=== PATIENT | male | born 1965 | race Caucasian/White ===

== ENCOUNTER 2020-10-29 08:12 | Outpatient (CLI) | payer OTHER, SELFPAY ==
--- NOTE | 2020-12-02 16:19 | WPDHOMESLEEP ---
Sleep Study - Home Unattended Date of Study: 10/29/20 Ordering Provider: Aleksandra Suresh PA-C Interpreting Physician: Alina Bates MD Home Sleep Study Type: Apnea Link Air Height: 1.85 m Weight: 130.181 kg Body Mass Index: 37.8 Neck Circumference (inches): 18 [place]: 2 Reason for Sleep Study Poor quality sleep, wakes up during the night; has restless leg syndrome and takes ropinirole Sleep History Scott Fernandes is a 55 year old man with a history of restless leg syndrome, on ropinirole. He has occasional snoring, and occasionally it is loud enough that others complain about it. He does not have heartburn, , belching or coughing at night. He does not awaken from sleep feeling short of breath. He rarely has difficulty sleeping with a cold. He does not wake up gasping for breath at night or have breathing problems at night observed by others. He rarely sweats excessively at night, rarely notices his heart pounding or beating irregularly night. He rarely falls asleep during the day, never on involuntarily or while driving. He does not fall asleep during physical effort. he denies loss of muscle tone with strong emotion. He does not have daytime difficulties due to excessive sleepiness, works as a computer teacher. He does not feel paralyzed on waking or falling asleep. He does not have vivid dreamlike scenes upon awakening or falling asleep. He is not afraid to go to sleep. He does not have nightmares. He rarely remembers his dreams. He rarely has racing thoughts. He rarely has feelings of sadness, depression or anxiety. He rarely has muscular tension and rarely notices parts of his body jerking. He occasionally kicks at night, occasionally has crawling and aching feelings in his legs at night. He occasionally has leg pain at night. He rarely has morning jaw pain. He rarely grinds his teeth during sleep. He rarely is bothered by pain during the day. He has never awakened by pain at night. He rarely wakes up feeling stiff in the morning. He occasionally wakes up with sore or achy muscles and occasionally wakes up with pain in the neck an He has memory problems. Normal bedtime is 11:30 p.m. taking 1/2 hour to fall asleep, typically waking 3-5 times at night. When he awakens he stays awake for 1/2 hour. While awake he does go urinate. He wakes in the morning at 7:30 a.m.. On the weekends he stays awake till midnight and wakes at 8 in the morning. He does not routinely take naps. A short nap is not refreshing. He generally feels refreshed in the morning. Habits: Never smoked tobacco. Caffeine 4 servings daily, each is a 12 oz can. No alcohol or recreational drugs. FOR[facility]LY [facility] Past Medical History Medical History (Updated 12/02/20 @ 19:48 by Alina Bates MD) Depression Hyperlipidemia Hypertension Restless legs Family History Family History Mother Family history of thyroid disease Father Hypertension Malignant neoplasm of prostate Social History Social History Smoking status: Never smoker Second hand tobacco smoke exposure: No Alcohol intake: never Medications Home Medications Medication Instructions Recorded Confirmed Type fenofibrate micronized 43 mg 43 mg PO DAILY #90 cap 06/16/20 Rx capsule potassium chloride 10 mEq See Rx Instructions PO .COMPLEX 06/17/20 Rx capsule,extended release #36 cap metoprolol succinate 25 mg 25 mg PO DAILY #90 tablet 06/19/20 Rx tablet,extended release 24 hr ropinirole 0.25 mg tablet 0.25 mg PO .HS #90 tablet 06/19/20 Rx bupropion HCl 150 mg 24 hr tablet, 150 mg PO QAM #90 tablet 08/03/20 Rx extended release hydrochlorothiazide 25 mg tablet 25 mg PO DAILY #90 tablet 11/15/20 Rx lisinopril 20 mg tablet 20 mg PO DAILY #90 tablet 11/15/20 Rx Sleep Procedure This test was performed using 4 channel monitoring including respir
[2020-12-02 19:47] VITALS: BMI 37.8
== END 2020-10-29 08:13 | disposition home or self-care (01) ==
LOC: ANHCSM 08:13
PROVIDERS: PCP Family Medicine; Visit Provider Physician Assistant
DX: G47.33 Obstructive sleep apnea (adult) (pediatric) (principal); G25.81 Restless legs syndrome
CPT/HCPCS: 95806

== ENCOUNTER 2024-05-17 14:04 | Outpatient (CLI) | payer BC, SELFPAY ==
--- NOTE | ~2024-05-17 | XR_ITS ---
XR knee LT min 4V DATE: 05/17/2024 14:27 INDICATION: Left knee pain, patellar pain. TECHNIQUE: [place] and standing AP, PA and lateral views COMPARISON: None FINDINGS: Patellar enthesopathy at the quadriceps and patellar tendon insertion sites. Mild patellar periarticular spurring. No fracture or dislocation or joint effusion is evident. Joint spaces appear well preserved. No fract ure or dislocation, periosteal reaction or bone destruction. No radiopaque intra-articular loose body or chondrocalcinosis. IMPRESSION: Patellar enthesopathy at quadriceps and patellar tendon insertion sites Mild patellofemoral osteoarthritis. Reviewed, dictated and finalized at location A. IMPRESSION: Patellar enthesopathy at quadriceps and patellar tendon insertion s ites Mild patellofemoral osteoarthritis.
== END 2024-05-17 14:05 | disposition home or self-care (01) ==
PROVIDERS: PCP Family Medicine; Visit Provider Family Medicine
DX: M17.12 Unilateral primary osteoarthritis, left knee (principal)
CPT/HCPCS: 73564

== ENCOUNTER 2024-06-02 14:37 | Emergency (ER) | payer BC, SELFPAY ==
--- NOTE | 2024-06-02 14:41 | ED.EYEPROB ---
HPI - Eye Problem General Chief complaint: Eye Problems Stated complaint: red eyes Time Seen by Provider: 06/02/24 14:50 Source: patient Mode of arrival: ambulatory Limitations: no limitations History of Present Illness HPI Narrative: Scott is a 4-year-old male patient presenting to the clinic today with complaints of eye redness and draining for the past 2 days. The left eye is worse than the right eye. Has been draining yellow discharge. States the eyes are very itchy. Denies any known injury or foreign body in the eye. He denies wearing contacts but does wear glasses. No fever or chills. No URI symptoms Related Data Home Medications Medication Instructions Recorded Confirmed diphenhydramine HCl 25 mg capsule 25 mg PO TID PRN Itching 12/28/20 06/02/24 (Benadryl) miconazole nitrate 2 % topical 1 applic topical DAILY 12/28/20 06/02/24 cream Allergies Allergy/AdvReac Type Severity Reaction Status Date / Time amoxicillin [From Augmentin] Allergy Mild rash Verified 06/02/24 14:49 clavulanic acid Allergy Mild rash Verified 06/02/24 14:49 [From Augmentin] Penicillins Allergy Unknown Unknown Verified 06/02/24 14:49 Review of Systems Review of Systems: Pertinent positives per HPI. Patient denies any fever, chills, rash, headache, visual changes, dizziness, cough, runny nose, sore throat, shortness of breath, chest pain, palpitations, nausea, vomiting, diarrhea, constipation, abdominal pain, or any urinary issues. PMFSH Past Medical History Medical History Depression Hyperlipidemia Hypertension Obesity (BMI 30-39.9) Prediabetes Restless legs Surgical History Surgical History H/O oral surgery Family History Family History Mother Family history of thyroid disease Father Hypertension Malignant neoplasm of prostate Social History Social History Smoking status: Never smoker Second hand tobacco smoke exposure: No Alcohol intake: never Substance use: never Substance use type: does not use Lack of Transportation: No Lack of Food: Never True Current Housing: I Have Housing Concerned About Future Housing: No Difficulty Paying Gas/Electric Bills: No Difficulty Paying for Meds: No Currently Unemployed: No Education: Bachelor's Degree Difficulty w/ Childcare or Family Care: No Living arrangements: with family Occupation/Education: occupation Gender identity (if verbalized by the patient): Male Sexual Orientation (if Verbalized by the Patient): Straight or Heterosexual Spiritual care concerns: No Agree to blood products: Yes Comments At the time of my signature, I reviewed and agree with the nursing past medical, surgical, social, and family history. There is no relevant family history pertinent to the patient complaint. Exam Narrative: General: Well-developed, well nourished, in no apparent distress Head: Normocephalic, atraumatic Eyes: Pupils equally round and reactive to light bilaterally, EOM intact, sclera and conjunctive injected with green mucopurulent discharge, right lids normal, mild redness and swelling noted to the left lower lid Ears: TMs intact and clear, ear canals clear, no drainage, grossly hearing normal. Nose: Nares patent, no discharge, no inflammation, no sinus tenderness. Mouth: Oropharynx without lesions or masses, good dentition, MMM. Neck: Supple, trachea midline, no enlargement of anterior or posterior cervical nodes, no thyroid masses or goiter palpable. Cardio: Regular rate and rhythm, s1 and s2 normal, no murmur appreciated. Resp: Clear to auscultation bilaterally anteriorly and posteriorly, no rhonchi, rales, wheezing or rubs Course Course Emergency Course: Portions of this judi
[2024-06-02 14:47] VITALS: BP 150/73; PULSE 61; RESP 18; TEMP 36.1; O2SAT 100
== END 2024-06-02 15:08 | disposition home or self-care (01) ==
PROVIDERS: Emergency Provider Nurse Practitioner Family; PCP Family Medicine
DX: H10.9 Unspecified conjunctivitis (principal); E78.5 Hyperlipidemia, unspecified; I10 Essential (primary) hypertension; R73.03 Prediabetes; G25.81 Restless legs syndrome; E66.9 Obesity, unspecified; Z68.38 Body mass index [BMI] 38.0-38.9, adult
CPT/HCPCS: 99213; G0463

== ENCOUNTER 2024-12-26 01:01 | Day surgery (SDC) | payer BC, SELFPAY ==
[2024-12-09 14:56] VITALS: BMI 38.7
--- OUTSIDE RECORDS SUMMARY | 2024-12-26 01:04 | XMS_ITS | Patient Health Summary ---
Author Organization [facility] Address [address] [place] [address] Care Team Providers Care Larry Operator Name Role Phone Sanjana Holm MD Primary Care Provider [phone] Note from [facility],non-owned Affiliates and Associated Physician Practices is amultiple site organization consisting of ambulatory clinics and hospital sitesin [place], [place], [place] and [place]. This disclosure is being madepursuant to the Care Everywhere program and may not contain all information available regarding this patient. Last updated 18.[facility] Allergies No known active allergies Medications * Be aware that medications may not be up to date on this document. Alwaysverify current medications with the patient. * phenyleph-shark charlene oil-mo-pet (Preparation H) 0.25-3-14-71.9 % ointment (Started 10/31/2024) Insert into the rectum as needed for Hemorrhoids Social History Tobacco Use Types Packs/Day Years Used Date Smoking Tobacco: Never Smokeless Tobacco: Never Tobacco Cessation:Counseling Given: Not Answered Alcohol Use Standard Drinks/Week Comments Never 0 (1 standard drink = 0.6 oz pur e alcohol) Sex and Gender Information Value Date Recorded Sex Assigned at Not on file Gender Identity Not on file Sexual Orientation Not on file Last Filed Vital Signs Vital Sign Reading Time Taken Comments Blood Pressure 162/86 10/31/2024 2:45 PM SALES PROCESS MANAGER Pulse 56 10/31/2024 2:45 PM SALES PROCESS MANAGER Temperature 36.7 ??C (98.1 ??F) 10/31/2024 10:[address] Respiratory Rate 14 10/31/2024 2:45 PM SALES PROCESS MANAGER Oxygen Saturation 96% 10/31/2024 2:45 PM SALES PROCESS MANAGER Inhaled Oxygen Concentration - - Weight 127 kg (280 lb) 10/31/2024 10:43 AM SALES PROCESS MANAGER Height 185.4 cm (6' 1 ) 10/31/2024 10:43 AM SALES PROCESS MANAGER Body Mass Index 36.94 10/31/2024 10:43 AM SALES PROCESS MANAGER Procedures * BLOOD TYPE VERIFICATION(Performed 10/31/2024) * CBC W AUTO DIFFERENTIAL(Performed 10/31/2024) * B-TYPE NATRIURETIC PEPTIDE(Performed 10/31/2024) * TROPONIN-I HIGH SENSITIVE BASELINE + 1HR(Performed 10/31/2024) * CT HEAD WO CONTRAST(Performed 10/31/2024) Performed for Syncope and collapse, Rectal bleeding * CT ANGIO ABDOMEN PELVIS(Performed 10/31/2024) Performed for Syncope and collapse, Rectal bleeding * TYPE + SCREEN PANEL(Performed 10/31/2024) * PT-INR [facility](Performed 10/31/2024) * EKG 12-LEAD(Performed 10/31/2024) Performed for Syncope and collapse * PHOSPHORUS BLOOD(Performed 10/31/2024) * MAGNESIUM BLOOD(Performed 10/31/2024) * COMPREHENSIVE METABOLIC PANEL(Performed 10/31/2024) * CBC W AUTO DIFFERENTIAL(Performed 10/31/2024) Results * TROPONIN-I HIGH SENSITIVE BASELINE + 1HR (10/31/2024 3:43 PM SALES PROCESS MANAGER) [facility] Troponin I High Sensitive 5 <=35 ng/L 10/31/2024 4:27 PM SALES PROCESS MANAGER [facility] Blood BLOOD SPECIMEN / Unknown Venipuncture / Unknown 10/31/2024 3:43 PM SALES PROCESS MANAGER 10/31/2024 3:56 PM SALES PROCESS MANAGER David Lamb MD LAB - CHEMISTRY OR DERABLES [address] [address], [facility] [phone] * BLOOD TYPE VERIFICATION (10/31/2024 3:43 PM SALES PROCESS MANAGER) Pathologist [facility] ABO Rh A POS 10/31/2024 4:5 9 PM SALES PROCESS MANAGER [facility] Blood Bank BLOOD SPECIMEN / Unknown Venipuncture / Unknown 10/31/2024 3:43 PM SALES PROCESS MANAGER 10/31/2024 3:53 PM SALES PROCESS MANAGER Sanjana Weber INSIDE SOLAR SALES CONSULTANT-TWISTING MACHINE OPERATOR LAB - BLOOD BANK ORDERABLES [facility] [address] [place] [address], [facility] [phone] * CBC W AUTO DIFFERENTIAL (10/31/2024 3:43 PM SALES PROCESS MANAGER) Only the most recent of2 resultswithin the time period is included. WBC 8.2 4.0 - 10.7 x10E9/L 10/31/2024 4:06 PM [facility] RBC Count 4.65 4.30 - 5.80 x10E12/L 10/31/2024 4:06 PM [facility] Hemoglobin 14.1 13.3 - 17.5 g/dL 10/31/2024 4:06 PM [facility] Hematocrit 39.6 38.7 - 51.1 % 10/31/2024 4:06 PM [facility] MCV 85.2 80.0 - 98.0 fL 10/31/2024 4:06 PM [facility] MCH 30.3 26.7 - 33.6 pg 10/31/2024 4:06 PM [facility] MCHC 35.6 31.7 - 36.3 g/dL 10/31/2024 4:06 PM [facility] RDW-CV 13.1 11.3 - 14.8 % 10/31/2024 4:06 PM [facility] Platelet Count 271 150 - 420 x10E9/L 10/31/2024 4:06 PM [facility] MPV 10.1 7.8 - 11.4 fL 10/31/2024 4:06 PM [facility] Neutrophil % 69.7 41.0 - 74.0 % 10/31/2024 4:06 PM [facility] Lymphocyte % 22.6 17.0 - 47.0 % 10/31/2024 4:06 PM [facility] Monocyte % 6.2 3.0 - 11.0 % 10/31/2024 4:06 PM [facility] Eosinophil % 0.5 0.0 - 7.0 % 10/31/2024 4:06 PM [facility] Basophil % 0.6 0.0 - 1.6 % 10/31/2024 4:06 PM [facility] Immature Granulocytes % 0.4 0.0 - 1.0 % 10/31/2024 4:06 PM [facility] Neutrophil Absolute 5.70 1.60 - 7.50 x10E9/L 10/31/2024 4:06 PM [facility] Lymphocyte Absolute 1.85 1.00 - 4.40 x10E9/L 10/31/2024 4:06 PM [facility] Monocyte Absolute 0.51 0.15 - 1.00 x10E9/L 10/31/2024 4:06 PM [facility] Eosinophil Absolute 0.04 0.00 - 0.60 x10E9/L 10/31/2024 4:06 PM [facility] Basophil Absolute 0.05 0.00 - 0.13 x10E9/L 10/31/2024 4:06 PM [facility] Blood BLOOD SPECIMEN / Unknown Venipuncture / Unknown 10/31/2024 3:43 PM SALES PROCESS MANAGER 10/31/2024 3:56 PM SALES PROCESS MANAGER David Lamb MD LAB - HEMATOLOGY O RDERABLES [facility] [address] [place] [address], [facility] [phone] * B-TYPE NATRIURETIC PEPTIDE (10/31/2024 3:43 PM SALES PROCESS MANAGER) BNP 28 <100 pg/mL 10/31/2024 4:33 PM [facility] Comment: A decision threshold of 100 pg/mL has been demonstrated to provide the maximal combination of sensitivity, specificity and predictive value for the diagnosis of congestive heart failure (CHF). ??Virtually all patients with no evidence of CHF have BNP values less than 100 pg/mL. A BNP value greater than 100 pg/mL is consistent with the diagnosis of CHF in the appropriate clinical setting. In a study of 693 patients (male and female) with diagnosed CHF, the following values were determined based on the NYHA functional classification system: NYHA Functional Class ?Mean Valule (pg/mL) ? % >100 pg/mL ?I ?320 ? 58.1 ?II ? 432 ? 73.0 ?III ?656 ? 79.0 ?IV ?1635 ? 98.3 ? Blood BLOOD SPECIMEN / Unknown Venipuncture / Unknown 10/31/2024 3:43 PM SALES PROCESS MANAGER 10/31/2024 3:56 PM SALES PROCESS MANAGER David Lamb MD LAB - CHEMISTRY OR DERABLES Performing Organization Address [facility]/State/[facility] Co de Phone Number [facility] [address] [place] [address], [place] [phone] * CT Angio Abdomen Pelvis (10/31/2024 2:15 PM SALES PROCESS MANAGER) Anatomical Region Laterality Modality Abdomen, Pelvis Computed Tomogra phy 10/31/2024 2:24 PM SALES PROCESS MANAGER Impressions 10/31/2024 4:46 PM SALES PROCESS MANAGER Impression: 1.No acute process identified in the abdomen or pelvis. No acute contrast extravasation is seen. 2.Cholelithiasis without acute cholecystitis. 3.There are tiny stones in the urinary bladder. > Dictated by Alfred Cook MD, (president & ceo [employer]). I, Emiliano Castanon MD have personally reviewed and interpreted this examination/study. > Interpreting Provider: Emiliano Castanon MD on 10/31/2024 4:46 PM Narrative 10/31/2024 4:46 PM SALES PROCESS MANAGER PROCEDURE: ??CT ANGIO ABDOMEN PELVIS, DATE/TIME OF EXAM: ??10/31/2024 2:15 PM, LOCATION ??[facility] INDICATION: R55: Syncope and collapse K62.5: Rectal bleeding ADDITIONAL CLINICAL INFORMATION: Ordering Provider Reason For Exam: ??GI hemorrhage, syncope Technologist Note: Additional: COMPARISON: None. TECHNIQUE: CT of the abdomen and pelvis was performed following the uneventful administration of 100 mL of Isovue 370 intravenous contrast according to GI protocol. Findings: Lower Chest: Normal. Liver: There is a 1.4 cm cyst in hepatic segment 4A. Gallbladder and Bile Ducts: A gallstone is seen. No wall thickening or pericholecystic fluid. Spleen: Normal. Pancreas: Normal. Adrenals: There is a right adrenal adenoma. The left adrenal gland is normal. Kidneys: Multiple hypoattenuating lesions measuring up to 1.7 cm in both kidneys likely represent simple and hemorrhagic cysts. Cortical defect in the left kidney likely due to parenchymal scarring from prior injury. Gastrointestinal: The stomach and visualized loops of large and small bowel are unremarkable. The appendix is not seen; however, no inflammatory changes are seen in the right lower quadrant. Linear hyperdensity in the small bowel likely represents ingested material such as a pill (series 11 image 38). Mesentery/Peritoneum/Retroperitoneum: Normal. Bladder: There are tiny stones in the bladder. Reproductive Organs: The prostate is partially calcified. Vasculature: No vascular abnormality is present. Bones: Bone windows demonstrate no suspicious lytic or blastic lesions. The visible osseous structures are intact. Soft tissues: Normal. Procedure Note Emiliano Castanon MD - 10/31/2024 PROCEDURE: CT ANGIO ABDOMEN PELVIS, DATE/TIME OF EXAM: 10/31/2024 2:15PM, LOCATION [facility] INDICATION: R55: Syncope and collapse K62.5: Rectal bleeding ADDITIONAL CLINICAL INFORMATION: Ordering Provider Reason For Exam: GI hemorrhage, syncope Technologist Note: Additional: COMPARISON: None. TECHNIQUE: CT of the abdomen and pelvis was performed following the uneventful administration of 100 mL of Isovue 370 intravenous contrast according to GI protocol. Findings: Lower Chest: Normal. Liver: There is a 1.4 cm cyst in hepatic segment 4A. Gallbladder and Bile Ducts: A gallstone is seen. No wall thickening or pericholecystic fluid. Spleen: Normal. Pancreas: Normal. Adrenals: There is a right adrenal adenoma. The left adrenal gland is normal. Kidneys: Multiple hypoattenuating lesions measuring up to 1.7 cm in both kidneys likely represent simple and hemorrhagic cysts. Cortical defect in the left kidney likely due to parenchymal scarringfrom prior injury. Gastrointestinal: The stomach and visualized loops of large and small bowel areunremarkable. The appendix is not seen; however, no inflammatory changes are seen inthe right lower quadrant. Linear hyperdensity in the small bowel likely represents ingested material such as a pill (series 11 image 38). Mesentery/Peritoneum/Retroperitoneum: Normal. Bladder: There are tiny stones in the bladder. Reproductive Organs: The prostate is partially calcified. Vasculature: No vascular abnormality is present. Bones: Bone windows demonstrate no suspicious lytic or blastic lesions. The visible osseous structures are intact. Soft tissues: Normal. Impression: 1.No acute process identified in the abdomen or pelvis. No acutecontrast extravasation is seen. 2.Cholelithiasis without acute cholecystitis. 3.There are tiny stones in the urinary bladder. > Dictated by Alfred Cook MD, (president & ceo [employer]). I, Emiliano Castanon MD have personally reviewed and interpreted this examination/study. > Interpreting Provider: Emiliano Castanon MD on 10/31/2024 4:46 PM [address] Lamb MD CT ORDERABLES * CT HEAD WO CONTRAST (10/31/2024 2:15 PM SALES PROCESS MANAGER) Anatomical Region Laterality Modality Head Computed Tomogra phy 10/31/2024 2:11 PM SALES PROCESS MANAGER Impressions 10/31/2024 2:39 PM SALES PROCESS MANAGER IMPRESSION: 1. No acute intracranial hemorrhage, stroke, mass effect. Report was dictated by Roosevelt Lee MD (vice president pharmacy). ICruzito MD have personally reviewed and interpreted this examination/study. > Interpreting Provider: Cruzito Kiran MD on 10/31/2024 2:39 PM Narrative 10/31/2024 2:39 PM SALES PROCESS MANAGER PROCEDURE: ??CT HEAD WO CONTRAST, DATE/TIME OF EXAM: ??10/31/2024 2:15 PM, LOCATION ??[facility] INDICATION: R55: Syncope and collapse K62.5: Rectal bleeding ADDITIONAL CLINICAL INFORMATION: Ordering Provider Reason For Exam: ??syncope Technologist Note: ??None Additional: ??None TECHNIQUE: CT of the head was performed without contrast according to standard protocol. CONTRAST: None COMPARISON: No prior study is available for comparison at the time of this dictation. FINDINGS: No acute intracranial hemorrhage or intra- or extra-axial fluid collections are identified. The ventricles are of normal size, shape, and morphology. The basal cisterns are patent. No mass effect or midline shift is seen. The saez-white matter differentiation is normal. Periventricular white matter hypoattenuation is a nonspecific finding that may be indicative of chronic small vessel ischemic disease. There is atherosclerotic calcification of the carotid siphons. Atherosclerotic calcification of the left V4 vertebral artery. The visualized portions of the orbits, paranasal sinuses, and mastoids appear normal. No acute calvarial fracture is identified. There is extra cranial metallic density most likely representing prior injury. Procedure Note Cruzito Kiran MD - 10/31/2024 PROCEDURE: CT HEAD WO CONTRAST, DATE/TIME OF EXAM: 10/31/2024 2:15 PM, LOCATION [facility] INDICATION: R55: Syncope and collapse K62.5: Rectal bleeding ADDITIONAL CLINICAL INFORMATION: Ordering Provider Reason For Exam: syncope Technologist Note: None Additional: None TECHNIQUE: CT of the head was performed without contrast according to standard protocol. CONTRAST: None COMPARISON: No prior study is available for comparison at the time ofthis dictation. FINDINGS: No acute intracranial hemorrhage or intra- or extra-axial fluidcollections are identified. The ventricles are of normal size, shape, andmorphology. The basal cisterns are patent. No mass effect or midline shift is seen.The saez-white matter differentiation is normal. Periventricular whitematter hypoattenuation is a nonspecific finding that may be indicative ofchronic small vessel ischemic disease. There is atherosclerotic calcification of the carotid siphons. Atherosclerotic calcification of the left [id number] artery. The visualized portions of the orbits, paranasal sinuses, and mastoids appear normal. No acute calvarial fracture is identified. There is extra cranialmetallic density most likely representing prior injury. IMPRESSION: 1. No acute intracranial hemorrhage, stroke, mass effect. Report was dictated by Roosevelt Lee MD (vice president pharmacy). I, Cruzito Kiran MD have personally reviewed and interpreted this examination/study. > Interpreting Provider: Cruzito Kiran MD on 10/31/2024 2:39 PM [address] Lamb MD [address] ORDERABLES * PT-INR [facility] (10/31/2024 11:43 AM SALES PROCESS MANAGER) Pathologist [facility] PT 13.5 12.1 - 14.8 Seconds 10/31/2024 12:26 PM [facility] INR 1.1 See Comment 10/31/2024 12:26 PM [facility] Comment:The suggested therap eutic range for standard coumadin (warfarin) therapy is an INR of 2.0-3.0. For high-risk patients (Mechanical Mitral Valve Prosthesis, etc.), the suggested prophylactic therapeutic range is an INR of 2.5-3.5. Blood BLOOD SPECIMEN / Unknown Venipuncture / Unknown 10/31/2024 11:43 AM SALES PROCESS MANAGER 10/31/2024 11:51 AM SALES PROCESS MANAGER David Lamb MD LAB - COAGULATION ORDERABLES [facility] [address] [place] [address], [facility] [phone] * TYPE + SCREEN PANEL (10/31/2024 11:43 AM SALES PROCESS MANAGER) Antibody Screen NEG 12:35 PM [facility] ABO Rh A POS 10/31/2024 12:35 PM SALES PROCESS MANAGER [facility] Blood Bank BLOOD SPECIMEN / Unknown Venipuncture / Unknown 10/31/2024 11:43 AM SALES PROCESS MANAGER 10/31/2024 11:53 AM SALES PROCESS MANAGER Sanjana Weber INSIDE SOLAR SALES CONSULTANT-TWISTING MACHINE OPERATOR LAB - BLOOD BANK ORDERABLES Performing Organization Address City/[facility]/ZIP Co de Phone Number [facility] [address] [place] [address], [facility] [phone] * EKG 12-LEAD (10/31/2024 11:36 AM SALES PROCESS MANAGER) Ventricular Rate 49 BPM [facility] Atrial Rate 49 BPM [facility] P-R Interval 148 ms [facility] QRS Duration ms 96 ms [facility] Q-T Interval ms 500 ms [facility] QTC Calculation (Bezet) 451 ms [facility] Calculated P [place] 33 degrees [facility] Calculated R [place] 43 degrees [facility] Calculated T [place] 31 degrees [facility] Interpretation EKG SINUS BRADYCARDIA OTHERWISE NORMAL ECG NO PREVIOUS ECGS AVAILABLE Confirmed by KRUNAL HWANG DO ([id number]) on 11/06/2024 3:54:33 PM [facility] 10/31/2024 11:3 6 AM SALES PROCESS MANAGER 11/06/2024 3:54 PM SALES PROCESS MANAGER David Lamb MD ECG ORDERABLES Performing Organization Address City/[facility] Co de Phone Number [facility] * (ABNORMAL) COMPREHENSIVE METABOLIC PANEL (10/31/2024 11:21 AM SALES PROCESS MANAGER) BUN 18 7 - 26 mg/dL 10/31/2024 12:09 PM [facility] Creatinine 1.32(H) 0.71 - 1.16 mg/dL 10/31/2024 12:09 PM [facility] Sodium 141 136 - 145 mmol/L 10/31/2024 12:09 PM [facility] Potassium 3.9 3.5 - 4.5 mmol/L 10/31/2024 12:09 PM [facility] Chloride 105 98 - 107 mmol/L 10/31/2024 12:09 PM [facility] CO2 27 22 - 29 mmol/L 10/31/2024 12:09 PM [facility] Glucose 122(H) 70 - 99 mg/dL 10/31/2024 12:09 PM [facility] Calcium 10.1 8.4 - 10.2 mg/dL 10/31/2024 12:09 PM [facility] Protein Total 7.4 6.0 - 8.3 g/dL 10/31/2024 12:09 PM [facility] Albumin 4.5 3.4 - 5.0 g/dL 10/31/2024 12:09 PM [facility] Bilirubin Total 0.9 0.2 - 1.2 mg/dL 10/31/2024 12:09 PM [facility] Alkaline Phosphatase 60 40 - 150 U/L 10/31/2024 12:09 PM [facility] ALT 25 5 - 55 U/L 10/31/2024 12:09 PM [facility] AST 21 5 - 34 U/L 10/31/2024 12:09 PM [facility] Anion Gap 9 6 - 16 10/31/2024 12:09 PM [facility] BUN/Creatinine Ratio 14 7 - 23 10/31/2024 12:09 PM [facility] Osmolality Calculated 295 275 - 295 mOsm/kg 10/31/2024 12:09 PM [facility] Albumin/Globulin Ratio 1.6 1.1 - 2.3 10/31/2024 12:09 PM [facility] eGFR by CKD-EPI 61(L) >=90 mL/min/1.7 3 m2 10/31/2024 12:09 PM [facility] Blood BLOOD SPECIMEN / Unknown Venipuncture / Unknown 10/31/2024 11:21 AM SALES PROCESS MANAGER 10/31/2024 11:33 AM [facility] Donna Chase PA-C LAB - PLATE PRINTER RY ORDERABLES [facility] [address] [place] [address], [facility] [phone] * (ABNORMAL) PHOSPHORUS BLOOD (10/31/2024 11:21 AM SALES PROCESS MANAGER) Phosphorus 2.6(L) 2.8 - 5.1 mg/dL 10/31/2024 12:09 PM SALES PROCESS MANAGER [facility] Blood BLOOD SPECIMEN / Unknown Venipuncture / Unknown 10/31/2024 11:21 AM SALES PROCESS MANAGER 10/31/2024 11:33 AM SALES PROCESS MANAGER David Lamb MD LAB - CHEMISTRY OR DERABLES [facility] [address] [place] [address], [place] [phone] * MAGNESIUM BLOOD (10/31/2024 11:21 AM SALES PROCESS MANAGER) Magnesium 2.1 1.6 - 2.6 mg/dL 10/31/2024 12:09 PM SALES PROCESS MANAGER [facility] Blood BLOOD SPECIMEN / Unknown Venipuncture / Unknown 10/31/2024 11:21 AM SALES PROCESS MANAGER 10/31/2024 11:33 AM SALES PROCESS MANAGER David Lamb MD LAB - CHEMISTRY OR DERABLES [address] [address], [place] [phone] Care Teams Larry Operator Relationship Specialty Start Date End Date Sanjana Holm MD [address] [place] [address] PCP - General Family Medicine 10/31/24
--- OUTSIDE RECORDS SUMMARY | 2024-12-26 01:04 | XMS_ITS | Clinical Summary ---
Author Organization [facility] Address [address] [place] [address] Care Team Providers Care Operations Architect Name Role Phone Sanjana Holm MD Primary Care Provider [phone] Source Comments [facility],non-owned Affiliates and Associated Physician Practices is amultiple site organization consisting of ambulatory clinics and hospital sitesin [place], [place], [place] and [place]. This disclosure is being madepursuant to the Care Everywhere program and may not contain all information available regarding this patient. Last updated 18.[facility] Allergies No known active allergies Medications * Be aware that medications may not be up to date on this document. Alwaysverify current medications with the patient. Medication Sig Dispensed Refills Start Date End Date Status phenyleph-shark charlene oil-mo-pet (Preparation H) 0.25-3-14-71.9 % ointment Insert into the rectum as needed for Hemorrhoids 28.4 g 10/31/2024 Active Encounters Date Type Department Care Team Description 10/31/2024 11:28 AM CHEMICAL ENGINEERING TECHNOLOGIST - 10/31/2024 4:56 PM [facility] Emergency [facility] [address] [place] [address] David Lamb MD External hemorrhoids (Primary Dx); Syncope and collapse; Rectal bleeding Discharge Disposition: Home or Self Care 10/31/2024 Travel from Last 3 Months Social History Tobacco Use Types Packs/Day Years [...] Comments Blood Pressure 162/86 10/31/2024 2:45 PM CHEMICAL ENGINEERING TECHNOLOGIST Pulse 56 10/31/2024 2:45 PM CHEMICAL ENGINEERING TECHNOLOGIST Temperature 36.7 ??C (98.1 ??F) 10/31/2024 10:[address] Respiratory Rate 14 10/31/2024 2:45 PM CHEMICAL ENGINEERING TECHNOLOGIST Oxygen Saturation 96% 10/31/2024 2:45 PM CHEMICAL ENGINEERING TECHNOLOGIST Inhaled Oxygen Concentration - - Weight 127 kg (280 lb) 10/31/2024 10:43 AM CHEMICAL ENGINEERING TECHNOLOGIST Height 185.4 cm (6' 1 ) 10/31/2024 10:43 AM CHEMICAL ENGINEERING TECHNOLOGIST Body Mass Index 36.94 10/31/2024 10:43 AM CHEMICAL ENGINEERING TECHNOLOGIST Plan of Treatment Health Maintenance Due Date Last Done Comments COLOGUARD (AGES 45-75) - COL ON CA SCREENING 1963 COLON MONITORING 1963 COLONOSCOPY - COLON CA SCREENING 1963 CT COLONOGRAPHY - COLON CA SCREENING 1963 Colorectal Cancer Screening 1963 FIT - COLON CA SCREENING 1963 FLEX SIG - COLON CA SCREENING 1963 LIPID TESTING 1963 HIV SCREENING 1978 HEPATITIS C SCREENING 06/15/1981 DTAP/TDAP/TD VACCINES (1 - Tdap) 1982 PNEUMOCOCCAL VACCINE 50+ (1 of 1 - PCV) 2013 ZOSTER VACCINE (1 of 2) 2013 COVID-19 VACCINE ( - 2023-2 5 season) 2024 INFLUENZA VACCINE (#1) 2024 DEPRESSION SCREENING 11/27/2024 Respiratory Syncytial Virus (RSV) Vaccine Pt: or over 60 yrs (1 - 1-dose 75+ series) 2038 HEPATITIS B VACCINE Aged Out No longe r eligible based on patient's age to complete this topic HIB VACCINE Aged Out No longer eligi ble based on patient's age to complete this topic HPV VACCINE Aged Out No longer eligi ble based on patient's age to complete this topic MENINGOCOCCAL (Group B) VACCINE Aged Out No longer eligible based on patient's age to complete this topic MENINGOCOCCAL VACCINE Aged Out No yumiko zeke eligible based on patient's age to complete this topic PNEUMOCOCCAL VACCINE Aged Out No long er eligible based on patient's age to complete this topic Procedures Procedure Name Priority Date/Time Associated Diagnosis Comments BLOOD TYPE VERIFICATION STAT 10/31/2024 3:43 PM CHEMICAL ENGINEERING TECHNOLOGIST CBC W AUTO DIFFERENTIAL STAT 10/31/2024 3:43 PM CHEMICAL ENGINEERING TECHNOLOGIST B-TYPE NATRIURETIC PEPTIDE STAT 10/31/2024 3:43 PM CHEMICAL ENGINEERING TECHNOLOGIST TROPONIN-I HIGH SENSITIVE BASELINE + 1HR STAT 10/31/2024 3:[address]ING [address] HEAD WO CONTRAST STAT 10/31/2024 2 :15 PM CHEMICAL ENGINEERING TECHNOLOGIST Syncope and collapse Rectal bleeding CT ANGIO ABDOMEN PELVIS STAT 10/31/2024 2:15 PM CHEMICAL ENGINEERING TECHNOLOGIST Syncope and collapse Rectal bleeding TYPE + SCREEN PANEL STAT 10/31/2024 1 1:43 AM CHEMICAL ENGINEERING TECHNOLOGIST PT-INR [facility] STAT 10/31/2024 11:43 AM CHEMICAL ENGINEERING TECHNOLOGIST EKG 12-LEAD Routine 10/31/2024 11:36 AM CHEMICAL ENGINEERING TECHNOLOGIST Syncope and collapse PHOSPHORUS BLOOD STAT 10/31/2024 11:2 1 AM CHEMICAL ENGINEERING TECHNOLOGIST MAGNESIUM BLOOD STAT 10/31/2024 11:21 AM CHEMICAL ENGINEERING TECHNOLOGIST COMPREHENSIVE METABOLIC PANEL STAT 10/31/2024 11:21 AM CHEMICAL ENGINEERING TECHNOLOGIST CBC W AUTO DIFFERENTIAL STAT 10/31/2024 11:21 AM CHEMICAL ENGINEERING TECHNOLOGIST from Last 3 Months Results * TROPONIN-I HIGH SENSITIVE BASELINE + 1HR (10/31/2024 3:43 PM CHEMICAL ENGINEERING TECHNOLOGIST) Troponin I High Sensitive 5 <=35 ng/L 10/31/2024 4:27 PM CHEMICAL ENGINEERING TECHNOLOGIST [facility] Blood BLOOD SPECIMEN / Unknown Venipuncture / Unknown 10/31/2024 3:43 PM CHEMICAL ENGINEERING TECHNOLOGIST 10/31/2024 3:56 PM CHEMICAL ENGINEERING TECHNOLOGIST David Lamb MD LAB - CHEMISTRY OR DERABLES [facility] [address] [place] [address], [facility] [phone] * BLOOD TYPE VERIFICATION (10/31/2024 3:43 PM CHEMICAL ENGINEERING TECHNOLOGIST) Pathologist [facility] ABO Rh A POS 10/31/2024 4:5 9 PM [facility] Blood Bank BLOOD SPECIMEN / Unknown Venipuncture / Unknown 10/31/2024 3:43 PM CHEMICAL ENGINEERING TECHNOLOGIST 10/31/2024 3:53 PM CHEMICAL ENGINEERING TECHNOLOGIST Sanjana Weber APRN-POLYSOMNOGRAPHY TECHNOLOGIST LAB - BLOOD BANK ORDERABLES Performing Organization Address [facility]/ZIP Co de Phone Number [facility] [address] [place] [phone], [facility] [phone] * CBC W AUTO DIFFERENTIAL (10/31/2024 3:43 PM CHEMICAL ENGINEERING TECHNOLOGIST) Only the most recent of2 resultswithin the time period is included. Pathologist [facility] WBC 8.2 4.0 - 10.7 x10E9/L 10/31/2024 4:06 PM [facility] RBC Count 4.65 4.30 - 5.80 x10E12/L 10/31/2024 4:06 PM [facility] Hemoglobin 14.1 13.3 - 17.5 g/dL 10/31/2024 4:06 PM [facility] Hematocrit 39.6 38.7 - 51.1 % 10/31/2024 4:06 PM [facility] MCV 85.2 80.0 - 98.0 fL 10/31/2024 4:06 PM [facility] MCH 30.3 26.7 - 33.6 pg 10/31/2024 4:06 PM [facility] MCHC 35.6 31.7 - 36.3 g/dL 10/31/2024 4:06 PM [facility] RDW-CV 13.1 11.3 - 14.8 % 10/31/2024 4:06 PM [facility] Platelet Count 271 150 - 420 x10E9/L 10/31/2024 4:06 PM [facility] MPV 10.1 7.8 - 11.4 fL 10/31/2024 4:06 PM [facility] Neutrophil % 69.7 41.0 - 74.0 % 10/31/2024 4:06 PM [facility] Lymphocyte % 22.6 17.0 - 47.0 % 10/31/2024 4:06 PM [facility] Monocyte % 6.2 3.0 - 11.0 % 10/31/2024 4:06 PM [facility] Eosinophil % 0.5 0.0 - 7.0 % 10/31/2024 4:06 PM [facility] Basophil % 0.6 0.0 - 1.6 % 10/31/2024 4:06 PM [facility] Immature Granulocytes % 0.4 0.0 - 1.0 % 10/31/2024 4:06 PM [facility] Neutrophil Absolute 5.70 1.60 - 7.50 x10E9/L 10/31/2024 4:06 PM [facility] Lymphocyte Absolute 1.85 1.00 - 4.40 x10E9/L 10/31/2024 4:06 PM [facility] Monocyte Absolute 0.51 0.15 - 1.00 x10E9/L 10/31/2024 4:06 PM [facility] Eosinophil Absolute 0.04 0.00 - 0.60 x10E9/L 10/31/2024 4:06 PM [facility] Basophil Absolute 0.05 0.00 - 0.13 x10E9/L 10/31/2024 4:06 PM [facility] Blood BLOOD SPECIMEN / Unknown Venipuncture / Unknown 10/31/2024 3:43 PM CHEMICAL ENGINEERING TECHNOLOGIST 10/31/2024 3:56 PM [facility] David Lamb MD LAB - HEMATOLOGY O RDERABLES [facility] [address] [place] [address], [facility] [phone] * B-TYPE NATRIURETIC PEPTIDE (10/31/2024 3:43 PM CHEMICAL ENGINEERING TECHNOLOGIST) [facility] BNP 28 <100 pg/mL 10/31/2024 4:33 PM CHEMICAL ENGINEERING TECHNOLOGIST [facility] Comment: A decision threshold of 100 [...] Unknown Venipuncture / Unknown 10/31/2024 3:43 PM CHEMICAL ENGINEERING TECHNOLOGIST 10/31/2024 3:56 PM CHEMICAL ENGINEERING TECHNOLOGIST David Lamb MD LAB - CHEMISTRY OR DERABLES [facility] [address] [place] [address], [facility] [phone] * CT Angio Abdomen Pelvis (10/31/2024 2:15 PM CHEMICAL ENGINEERING TECHNOLOGIST) Anatomical Region Laterality Modality Abdomen, Pelvis Computed Tomogra phy 10/31/2024 2:24 PM CHEMICAL ENGINEERING TECHNOLOGIST Impressions 10/31/2024 4:46 PM CHEMICAL ENGINEERING TECHNOLOGIST Impression: 1.No acute process identified in the abdomen or pelvis. No acute contrast extravasation is seen. 2.Cholelithiasis without acute cholecystitis. 3.There are tiny stones in the urinary bladder. > Dictated by Alfred Cook MD, (resident assistant). I, Emiliano Castanon MD have personally reviewed and interpreted this examination/study. > Interpreting Provider: Emiliano Castanon MD on 10/31/2024 4:46 PM Narrative 10/31/2024 4:46 PM CHEMICAL ENGINEERING TECHNOLOGIST PROCEDURE: ??CT ANGIO ABDOMEN PELVIS, DATE/TIME OF EXAM: ??10/31/2024 2:15 PM, LOCATION ??[facility] INDICATION: R55: Syncope and collapse K62.5: Rectal [...] PELVIS, DATE/TIME OF EXAM: 10/31/2024 2:15PM, LOCATION [facility] INDICATION: R55: Syncope and collapse K62.5: Rectal [...] bladder. > Dictated by Alfred Cook MD, (resident assistant). Emiliano Draper MD have personally reviewed and interpreted this examination/study. > Interpreting Provider: Emiliano Castanon MD on 10/31/2024 4:46 PM David Lamb MD CT ORDERABLES * CT HEAD WO CONTRAST (10/31/2024 2:15 PM CHEMICAL ENGINEERING TECHNOLOGIST) Anatomical Region Laterality Modality Head Computed Tomogra phy 10/31/2024 2:11 PM CHEMICAL ENGINEERING TECHNOLOGIST Impressions 10/31/2024 2:39 PM CHEMICAL ENGINEERING TECHNOLOGIST IMPRESSION: 1. No acute intracranial hemorrhage, stroke, mass effect. Report was dictated by Roosevelt Lee MD (residential door unit installer). Cruzito Draper MD have personally reviewed and interpreted this examination/study. > Interpreting Provider: Cruzito Kiran MD on 10/31/2024 2:39 PM Narrative 10/31/2024 2:39 PM CHEMICAL ENGINEERING TECHNOLOGIST PROCEDURE: ??CT HEAD WO CONTRAST, DATE/TIME OF EXAM: ??10/31/2024 2:15 PM, LOCATION ??[facility] INDICATION: R55: Syncope and collapse K62.5: Rectal [...] DATE/TIME OF EXAM: 10/31/2024 2:15 PM, LOCATION [facility] INDICATION: R55: Syncope and collapse K62.5: Rectal [...] carotid siphons. Atherosclerotic calcification of the left [id number] artery. The visualized portions of the orbits, paranasal sinuses, and mastoids appear normal. No acute calvarial fracture is identified. There is extra cranialmetallic density most likely representing prior injury. IMPRESSION: 1. No acute intracranial hemorrhage, stroke, mass effect. Report was dictated by Roosevelt Lee MD (residential door unit installer). I, Cruzito Kiran MD have personally reviewed and interpreted this examination/study. > Interpreting Provider: Cruzito Kiran MD on 10/31/2024 2:39 PM David Lamb MD CT ORDERABLES * PT-INR [facility] (10/31/2024 11:43 AM CHEMICAL ENGINEERING TECHNOLOGIST) PT 13.5 12.1 - 14.8 Seconds 10/31/2024 12:26 PM [facility] INR 1.1 See Comment 10/31/2024 12:26 PM [facility] Comment:The suggested therap eutic range for standard coumadin (warfarin) therapy is an INR of 2.0-3.0. For high-risk patients (Mechanical Mitral Valve Prosthesis, etc.), the suggested prophylactic therapeutic range is an INR of 2.5-3.5. Blood BLOOD SPECIMEN / Unknown Venipuncture / Unknown 10/31/2024 11:43 AM CHEMICAL ENGINEERING TECHNOLOGIST 10/31/2024 11:51 AM CHEMICAL ENGINEERING TECHNOLOGIST David Lamb MD LAB - COAGULATION ORDERABLES Performing Organization Address [facility]/ZIP Co de Phone Number [facility] [address] [place] [address], [facility] [phone] * TYPE + SCREEN PANEL (10/31/2024 11:43 AM CHEMICAL ENGINEERING TECHNOLOGIST) Antibody Screen NEG 12:35 PM CHEMICAL ENGINEERING TECHNOLOGIST [facility] ABO Rh A POS 10/31/2024 12:35 PM CHEMICAL ENGINEERING TECHNOLOGIST [facility] Blood Bank BLOOD SPECIMEN / Unknown Venipuncture / Unknown 10/31/2024 11:43 AM CHEMICAL ENGINEERING TECHNOLOGIST 10/31/2024 11:53 AM CHEMICAL ENGINEERING TECHNOLOGIST Sanjana Weber AERONAUTICAL PROJECT ENGINEER-POLYSOMNOGRAPHY TECHNOLOGIST LAB - BLOOD BANK ORDERABLES Performing Organization Address [facility] de Phone Number [facility] [address] [place] [address], [facility] [phone] * EKG 12-LEAD (10/31/2024 11:36 AM CHEMICAL ENGINEERING TECHNOLOGIST) Ventricular Rate 49 BPM SL MUSE Atrial Rate 49 BPM [facility] MUSE P-R Interval 148 ms [facility] M[facility] QRS Duration ms 96 ms [facility] MUSE Q-T Interval ms 500 ms [facility] MUSE QTC Calculation (Bezet) 451 ms [facility] MUSE Calculated P [place] 33 degrees [facility] MUSE Calculated R [place] 43 degrees [facility] MUSE Calculated T [place] 31 degrees [facility] MUSE Interpretation EKG SINUS BRADYCARDIA OTHERWISE NORMAL ECG NO PREVIOUS ECGS AVAILABLE Confirmed by KRUNAL HWANG DO ([id number]) on 11/06/2024 3:54:33 PM [facility] MUSE 10/31/2024 11:3 6 AM CHEMICAL ENGINEERING TECHNOLOGIST 11/06/2024 3:54 PM CHEMICAL ENGINEERING TECHNOLOGIST David Lamb MD ECG ORDERABLES Performing Organization Address [facility] Co de Phone Number [facility] MUSE * (ABNORMAL) COMPREHENSIVE METABOLIC PANEL (10/31/2024 11:21 AM CHEMICAL ENGINEERING TECHNOLOGIST) BUN 18 7 - 26 mg/dL 10/31/2024 12:09 PM [facility] Creatinine 1.32(H) 0.71 - 1.16 mg/dL 10/31/2024 12:09 PM [facility] Sodium 141 136 - 145 mmol/L 10/31/2024 12:09 PM [facility] Potassium 3.9 3.5 - 4.5 mmol/L 10/31/2024 12:09 PM [facility] Chloride 105 98 - 107 mmol/L 10/31/2024 12:09 PM [facility] CO2 27 22 - 29 mmol/L 10/31/2024 12:09 PM [facility] Glucose 122(H) 70 - 99 mg/dL 10/31/2024 12:09 PM [facility] Calcium 10.1 8.4 - 10.2 mg/dL 10/31/2024 12:09 PM [facility] Protein Total 7.4 6.0 - 8.3 g/dL 10/31/2024 12:09 PM [facility] Albumin 4.5 3.4 - 5.0 g/dL 10/31/2024 12:09 PM [facility] Bilirubin Total 0.9 0.2 - 1.2 mg/dL 10/31/2024 12:09 PM [facility] Alkaline Phosphatase 60 40 - 150 U/L 10/31/2024 12:09 PM [facility] ALT 25 5 - 55 U/L 10/31/2024 12:09 PM [facility] AST 21 5 - 34 U/L 10/31/2024 12:09 PM [facility] Anion Gap 9 6 - 16 10/31/2024 12:09 PM [facility] BUN/Creatinine Ratio 14 7 - 23 10/31/2024 12:09 PM [facility] Osmolality Calculated 295 275 - 295 mOsm/kg 10/31/2024 12:09 PM [facility] Albumin/Globulin Ratio 1.6 1.1 - 2.3 10/31/2024 12:09 PM [facility] eGFR by CKD-EPI 61(L) >=90 mL/min/1.7 3 m2 10/31/2024 12:09 PM CHEMICAL ENGINEERING TECHNOLOGIST [facility] Blood BLOOD SPECIMEN / Unknown Venipuncture / Unknown 10/31/2024 11:21 AM CHEMICAL ENGINEERING TECHNOLOGIST 10/31/2024 11:33 AM CHEMICAL ENGINEERING TECHNOLOGIST Donna De La Cruz PA-C LAB - MEMBERSHIP SALES ADVISOR RY ORDERABLES [address] [address], [place] [phone] * (ABNORMAL) PHOSPHORUS BLOOD (10/31/2024 11:21 AM CHEMICAL ENGINEERING TECHNOLOGIST) Phosphorus 2.6(L) 2.8 - 5.1 mg/dL 10/31/2024 12:09 PM CHEMICAL ENGINEERING TECHNOLOGIST [facility] Blood BLOOD SPECIMEN / Unknown Venipuncture / Unknown 10/31/2024 11:21 AM CHEMICAL ENGINEERING TECHNOLOGIST 10/31/2024 11:33 AM CHEMICAL ENGINEERING TECHNOLOGIST David Lamb MD LAB - CHEMISTRY OR DERABLES Performing Organization Address City/[facility]/ZIP Co de Phone Number [address] [address], [place] [phone] * MAGNESIUM BLOOD (10/31/2024 11:21 AM CHEMICAL ENGINEERING TECHNOLOGIST) Magnesium 2.1 1.6 - 2.6 mg/dL 10/31/2024 12:09 PM CHEMICAL ENGINEERING TECHNOLOGIST [facility] Blood BLOOD SPECIMEN / Unknown Venipuncture / Unknown 10/31/2024 11:21 AM CHEMICAL ENGINEERING TECHNOLOGIST 10/31/2024 11:33 AM CHEMICAL ENGINEERING TECHNOLOGIST David Lamb MD LAB - CHEMISTRY OR DERABLES [address] [address], [place] [phone] from Last 3 Months Care Teams Operations Architect Relationship Specialty Start Date End Date Sanjana Holm MD [address] [place] [address] PCP - General Family Medicine 10/31/24
--- OUTSIDE RECORDS SUMMARY | 2024-12-26 01:04 | XMS_ITS | Continuity of Care Document ---
Author Organization [facility] Address [address] [facility] utive [facility] [address] [place] [address] Phone Care Team Providers Care Paint Trimmer Pipe Bowls Name Role Phone Riggins OD, Caludio Unavailable Unavailable Advance Directives Directive Yes / No Effective Date File Name No Information Encounters Encounter Description Practice Location Reason(s) For Visit Diagnoses Date Provider Providers Copied on Encounter [facility], [address], [place], [place], [id number], [place] tel:[phone] [facility] No Information Dorian-0 [phone] Riggins OD Claudio. [address] , [address], [place], [address], [place]. tel:[phone] Family History Family Member Type Diagnosis Age At Onset No Information Payers Payer name Insurance type Covered republican ID Authoriza tion(s) No Information Social History Type Description Quantity Date Captured Comments Sex Male Smoking Status No Information Chief Complaint And Reason For Visit No Information Reason For Referral Reason For Referral No Information History Of Present Illness Encounter Date Complaint History Of Prese nt Illness No Information Functional Status Date Functional Assessmen t No Information Instructions Date Instruction Additional Infor mation No Information Assessments Type Assessment Date No Information Patient Care Teams Name Effective Dates (start - stop) Status Members No Information
--- OUTSIDE RECORDS SUMMARY | 2024-12-26 01:04 | XMS_ITS | Referral Summary ---
Author Organization [facility] Address [address] [place] [address] Care Team Providers Care Supervisor [employer] Name Role Phone Sanjana Holm MD Primary Care Provider [phone] Source Comments [facility],non-[facility] Affiliates and Associated Physician Practices is amultiple site organization consisting of ambulatory clinics and hospital sitesin [place], [place], [place] and [place]. This disclosure is being madepursuant to the Care Everywhere program and may not contain all information available regarding this patient. Last updated 18.[facility] Encounters Date Type Department Care Team Description 10/31/2024 Travel 10/31/2024 11:28 AM [facility] - 10/31/2024 4:56 PM [facility] Emergency [facility] EMERGENCY DEPARTMENT [address] [place] [address] David Lamb MD External hemorrhoids (Primary Dx); Syncope and collapse; Rectal bleeding Discharge Disposition: Home or Self Care from Last 3 Months Allergies No known active allergies Medications * Be aware that medications may not be up to date on this document. Alwaysverify current medications with the patient. Medication Sig Dispensed Refills Start Date End Date Status phenyleph-shark charlene oil-mo-pet (Preparation H) 0.25-3-14-71.9 % ointment Insert into the rectum as needed for Hemorrhoids 28.4 g 10/31/2024 Active Social History Tobacco Use Types Packs/Day Years [...] Comments Blood Pressure 162/86 10/31/2024 2:45 PM COMPUTER MECHANIC Pulse 56 10/31/2024 2:45 PM COMPUTER MECHANIC Temperature 36.7 ??C (98.1 ??F) 10/31/2024 10:[address] Respiratory Rate 14 10/31/2024 2:45 PM COMPUTER MECHANIC Oxygen Saturation 96% 10/31/2024 2:45 PM COMPUTER MECHANIC Inhaled Oxygen Concentration - - Weight 127 kg (280 lb) 10/31/2024 10:43 AM COMPUTER MECHANIC Height 185.4 cm (6' 1 ) 10/31/2024 10:43 AM COMPUTER MECHANIC Body Mass Index 36.94 10/31/2024 10:43 AM COMPUTER MECHANIC Plan of Treatment Not on file Procedures Procedure Name Priority Date/Time Associated Diagnosis Comments BLOOD TYPE VERIFICATION STAT 10/31/2024 3:43 PM COMPUTER MECHANIC CBC W AUTO DIFFERENTIAL STAT 10/31/2024 3:43 PM COMPUTER MECHANIC B-TYPE NATRIURETIC PEPTIDE STAT 10/31/2024 3:43 PM COMPUTER MECHANIC TROPONIN-I HIGH SENSITIVE BASELINE + 1HR STAT 10/31/2024 3:[address] HEAD WO CONTRAST STAT 10/31/2024 2 :15 PM COMPUTER MECHANIC Syncope and collapse Rectal bleeding CT ANGIO ABDOMEN PELVIS STAT 10/31/2024 2:15 PM COMPUTER MECHANIC Syncope and collapse Rectal bleeding TYPE + SCREEN PANEL STAT 10/31/2024 1 1:43 AM COMPUTER MECHANIC PT-INR [facility] STAT 10/31/2024 11:43 AM COMPUTER MECHANIC EKG 12-LEAD Routine 10/31/2024 11:36 AM COMPUTER MECHANIC Syncope and collapse PHOSPHORUS BLOOD STAT 10/31/2024 11:2 1 AM COMPUTER MECHANIC MAGNESIUM BLOOD STAT 10/31/2024 11:21 AM COMPUTER MECHANIC COMPREHENSIVE METABOLIC PANEL STAT 10/31/2024 11:21 AM COMPUTER MECHANIC CBC W AUTO DIFFERENTIAL STAT 10/31/2024 11:21 AM COMPUTER MECHANIC from Last 3 Months Results * TROPONIN-I HIGH SENSITIVE BASELINE + 1HR (10/31/2024 3:43 PM COMPUTER MECHANIC) [facility] Troponin I High Sensitive 5 <=35 ng/L 10/31/2024 4:27 PM COMPUTER MECHANIC [facility] Blood BLOOD SPECIMEN / Unknown Venipuncture / Unknown 10/31/2024 3:43 PM COMPUTER MECHANIC 10/31/2024 3:56 PM COMPUTER MECHANIC David Lamb MD LAB - CHEMISTRY OR DERABLES [facility] [address] [place] [address], [facility] [phone] * BLOOD TYPE VERIFICATION (10/31/2024 3:43 PM COMPUTER MECHANIC) [facility] ABO Rh A POS 10/31/2024 4:5 9 PM COMPUTER MECHANIC [facility] BLOOD BANK LAB Blood Bank BLOOD SPECIMEN / Unknown Venipuncture / Unknown 10/31/2024 3:43 PM COMPUTER MECHANIC 10/31/2024 3:53 PM COMPUTER MECHANIC Sanjana Weber APRN-POWDER [facility] LAB - BLOOD BANK ORDERABLES [facility] BLOOD BANK LAB [address] [place] [address], [place] [phone] * CBC W AUTO DIFFERENTIAL (10/31/2024 3:43 PM COMPUTER MECHANIC) Only the most recent of2 resultswithin the time period is included. [facility] WBC 8.2 4.0 - 10.7 x10E9/L 10/31/2024 4:06 PM COMPUTER MECHANIC [facility] RBC Count 4.65 4.30 - 5.80 [...] Unknown Venipuncture / Unknown 10/31/2024 3:43 PM COMPUTER MECHANIC 10/31/2024 3:56 PM [facility] David Lamb MD LAB - HEMATOLOGY O RDERABLES [facility] [address] [place] [address], [facility] [phone] * B-TYPE NATRIURETIC PEPTIDE (10/31/2024 3:43 PM [facility]) BNP 28 <100 pg/mL 10/31/2024 4:33 PM [...] Unknown Venipuncture / Unknown 10/31/2024 3:43 PM COMPUTER MECHANIC 10/31/2024 3:56 PM COMPUTER MECHANIC David Lamb MD LAB - CHEMISTRY OR DERABLES Performing Organization Address [facility] de Phone Number [address] [address], [facility] [phone] * CT Angio Abdomen Pelvis (10/31/2024 2:15 PM COMPUTER MECHANIC) Anatomical Region Laterality Modality Abdomen, Pelvis Computed Tomogra phy 10/31/2024 2:24 PM COMPUTER MECHANIC Impressions 10/31/2024 4:46 PM COMPUTER MECHANIC Impression: 1.No acute process identified in the abdomen or pelvis. No acute contrast extravasation is seen. 2.Cholelithiasis without acute cholecystitis. 3.There are tiny stones in the urinary bladder. > Dictated by Alfred Cook MD, (vice president sales). I, Emiliano Castanon MD have personally reviewed and interpreted this examination/study. > Interpreting Provider: Emiliano Castanon MD on 10/31/2024 4:46 PM Narrative 10/31/2024 4:46 PM COMPUTER MECHANIC PROCEDURE: ??CT ANGIO ABDOMEN PELVIS, DATE/TIME OF [...] bladder. > Dictated by Alfred Cook MD, (vice president sales). Emiliano Draper MD have personally reviewed and interpreted this examination/study. > Interpreting Provider: Emiliano Castanon MD on 10/31/2024 4:46 PM [address] Lamb MD [address] ORDERABLES * CT HEAD WO CONTRAST (10/31/2024 2:15 PM COMPUTER MECHANIC) Anatomical Region Laterality Modality Head Computed Tomogra phy 10/31/2024 2:11 PM COMPUTER MECHANIC Impressions 10/31/2024 2:39 PM COMPUTER MECHANIC IMPRESSION: 1. No acute intracranial hemorrhage, stroke, mass effect. Report was dictated by Roosevelt Lee MD (vice president tax). Cruzito Draper MD have personally reviewed and interpreted this examination/study. > Interpreting Provider: Cruzito Kiran MD on 10/31/2024 2:39 PM Narrative 10/31/2024 2:39 PM COMPUTER MECHANIC PROCEDURE: ??CT HEAD WO CONTRAST, DATE/TIME OF [...] carotid siphons. Atherosclerotic calcification of the left [id number] artery. The visualized portions of the orbits, paranasal sinuses, and mastoids appear normal. No acute calvarial fracture is identified. There is extra cranialmetallic density most likely representing prior injury. IMPRESSION: 1. No acute intracranial hemorrhage, stroke, mass effect. Report was dictated by Roosevelt Lee MD (vice president tax). ICruzito MD have personally reviewed and interpreted this examination/study. > Interpreting Provider: Cruzito Kiran MD on 10/31/2024 2:39 PM [address] Lamb MD [address] ORDERABLES * PT-INR [facility] (10/31/2024 11:43 AM COMPUTER MECHANIC) [facility] PT 13.5 12.1 - 14.8 Seconds 10/31/2024 12:26 PM [facility] INR 1.1 See Comment 10/31/2024 12:26 PM [facility] Comment:The suggested therap eutic range for standard coumadin (warfarin) therapy is an INR of 2.0-3.0. For high-risk patients (Mechanical Mitral Valve Prosthesis, etc.), the suggested prophylactic therapeutic range is an INR of 2.5-3.5. Blood BLOOD SPECIMEN / Unknown Venipuncture / Unknown 10/31/2024 11:43 AM COMPUTER MECHANIC 10/31/2024 11:51 AM COMPUTER MECHANIC David Lamb MD LAB - COAGULATION ORDERABLES Performing Organization Address City/[facility]/ZIP Co de Phone Number [facility] [address] [address], [facility] [phone] * TYPE + SCREEN PANEL (10/31/2024 11:43 AM COMPUTER MECHANIC) [facility] Antibody Screen NEG 12:35 PM [facility] ABO Rh A POS 10/31/2024 12:35 PM [facility] B[facility]OD [facility] LAB Blood Bank BLOOD SPECIMEN / Unknown Venipuncture / Unknown 10/31/2024 11:43 AM COMPUTER MECHANIC 10/31/2024 11:53 AM COMPUTER MECHANIC Sanjana Weber BINGO MANAGER-P[employer] [facility] LAB - BLOOD BANK ORDERABLES [facility] BLOOD BANK LAB [address] [place] [address], [place] [phone] * EKG 12-LEAD (10/31/2024 11:36 AM COMPUTER MECHANIC) [facility] Ventricular Rate 49 BPM [facility] MUSE Atrial Rate 49 BPM [facility] MUSE P-R Interval 148 ms [facility] MUSE QRS Duration ms 96 ms [facility] MUSE Q-T Interval ms 500 ms [facility] MUSE QTC Calculation (Bezet) 451 ms [facility] MUSE Calculated P Julian 33 degrees [facility] MUSE Calculated R Julian 43 degrees [facility] MUSE Calculated T Julian 31 degrees [facility] MUSE Interpretation EKG SINUS BRADYCARDIA OTHERWISE NORMAL ECG NO PREVIOUS ECGS AVAILABLE Confirmed by KRUNAL HWANG DO ([id number]) on 11/06/2024 3:54:33 PM [facility] MUSE 10/31/2024 11:3 6 AM COMPUTER MECHANIC 11/06/2024 3:54 PM COMPUTER MECHANIC David Lamb MD ECG ORDERABLES [facility] MUSE * (ABNORMAL) COMPREHENSIVE METABOLIC PANEL (10/31/2024 11:21 AM COMPUTER MECHANIC) BUN 18 7 - 26 mg/dL 10/31/2024 12:09 PM [facility] Creatinine 1.32(H) 0.71 - 1.16 mg/dL 10/31/2024 12:09 PM [facility] Sodium 141 136 - 145 mmol/L 10/31/2024 12:09 PM [facility] Potassium 3.9 3.5 - 4.5 mmol/L 10/31/2024 12:09 PM [facility] Chloride 105 98 - 107 mmol/L [...] Unknown Venipuncture / Unknown 10/31/2024 11:21 AM COMPUTER MECHANIC 10/31/2024 11:33 AM COMPUTER MECHANIC Donna De La Cruz PA-C LAB - CLIENT ACCOUNT MANAGER RY ORDERABLES [address] [address], [email or web address] [phone] * (ABNORMAL) PHOSPHORUS BLOOD (10/31/2024 11:21 AM COMPUTER MECHANIC) Phosphorus 2.6(L) 2.8 - 5.1 mg/dL 10/31/2024 12:09 PM [facility] Blood BLOOD SPECIMEN / Unknown Venipuncture / Unknown 10/31/2024 11:21 AM COMPUTER MECHANIC 10/31/2024 11:33 AM COMPUTER MECHANIC David Lamb MD LAB - CHEMISTRY OR DERABLES [address] [address], [facility] [phone] * MAGNESIUM BLOOD (10/31/2024 11:21 AM COMPUTER MECHANIC) Magnesium 2.1 1.6 - 2.6 mg/dL 10/31/2024 12:09 PM COMPUTER MECHANIC [facility] Blood BLOOD SPECIMEN / Unknown Venipuncture / Unknown 10/31/2024 11:21 AM COMPUTER MECHANIC 10/31/2024 11:33 AM COMPUTER MECHANIC David Lamb MD LAB - CHEMISTRY OR DERABLES [facility] [address] [place] [address], [facility] [phone] from Last 3 Months Care Teams Supervisor [employer] Relationship Specialty Start Date End Date Sanjana Holm MD [address] [place] [address] PCP - General Family Medicine 10/31/24
[2024-12-26 08:09] VITALS: BP 146/75; PULSE 85; RESP 16; TEMP 36.3; O2SAT 99; BMI 37.8
[2024-12-26] MEDS: LACTATED RINGERS 1,000 ML 150 ML IV CONT (08:17)
--- NOTE | 2024-12-26 08:31 | WPDANESEPPF ---
Anes - Initial Pre Proc Eval Procedure: Operation Date: 12/26/24 09:00 Proposed Procedures p Screening Colonoscopy - Phil Wu DO Date/Time: 12/26/24 08:31 Surgeon: Phil Wu DO Pre Op Diagnosis: grade 2 internal hemorrhoids, rectal bleeding Patient Data Age: 59 Gender: M Height: 1.83 m Weight: 126.4 kg Last Vital Signs Temp 36.3 C L 12/26/24 08:09 Pulse 85 12/26/24 08:09 Resp 16 12/26/24 08:09 BP 146/75 H 12/26/24 08:09 Pulse Ox 99 12/26/24 08:09 O2 Del Method Room Air 12/26/24 08:09 Allergies Allergy/AdvReac Type Severity Reaction Status Date / Time amoxicillin (From Augmentin) Allergy Mild rash Verified 12/26/24 08:08 clavulanic acid (From Allergy Mild rash Verified 12/26/24 08:08 Augmentin) Penicillins Allergy Unknown Unknown Verified 12/26/24 08:08 Home Medications ?Medication ?Instructions ?Recorded ?Confirmed ?Type diphenhydramine HCl 25 mg capsule 25 mg PO TID PRN Itching 12/28/20 12/09/24 History (Benadryl) miconazole nitrate 2 % topical 1 applic topical DAILY 12/28/20 12/09/24 History cream fenofibrate micronized 43 mg 43 mg PO DAILY #90 caps 06/20/24 12/09/24 Rx capsule lisinopril 20 mg tablet 20 mg PO DAILY #90 tabs 06/20/24 12/09/24 Rx metoprolol succinate 25 mg 25 mg PO DAILY #90 tabs 06/20/24 12/09/24 Rx tablet,extended release 24 hr bupropion HCl 150 mg 24 hr tablet, See Rx Instructions .Route 07/30/24 12/09/24 Rx extended release .COMPLEX #90 tabs potassium chloride 10 mEq See Rx Instructions PO .COMPLEX 09/06/24 12/09/24 Rx capsule,extended release #216 caps hydrochlorothiazide 25 mg tablet 25 mg PO DAILY #90 tabs 12/02/24 12/09/24 Rx ropinirole 0.25 mg tablet 0.25 mg PO .HS #90 tabs 12/02/24 12/09/24 Rx meloxicam 15 mg tablet 15 mg PO DAILY #30 tabs 12/21/24 12/26/24 Rx Patient hx anesthesia problems: none Family hx anesthesia problems: none Results Review: All pre-operative results and documents have been reviewed as part of the pre-operative evaluation. [facility] Past Medical History Medical History Obesity (BMI 30-39.9) Prediabetes Restless legs Depression Hyperlipidemia Hypertension Surgical History Surgical History H/O oral surgery Family History Family History Mother Family history of thyroid disease Cerebrovascular accident Father Hypertension Malignant neoplasm of prostate Acute myocardial infarction Sibling No problems noted. Social History Social History Smoking status: Never smoker Second hand tobacco smoke exposure: No Alcohol intake: never Substance use: never Substance use type: does not use Do You Feel Safe in your Home?: Yes Lack of Transportation: No Lack of Food: Never True Current Housing: I Have Housing Concerned About Future Housing: No Difficulty Paying Gas/Electric Bills: No Difficulty Paying for Meds: No Currently Unemployed: No Education: Bachelor's Degree Difficulty w/ Childcare or Family Care: No Living arrangements: with family Occupation/Education: occupation Additional occupation/education comments: [employer] Gender identity (if verbalized by the patient): Male Sexual Orientation (if Verbalized by the Patient): Straight or Heterosexual Spiritual care concerns: No Agree to blood products: Yes Anes - Eval Final PreProcedure Day of Procedure 12/26/24 08:31 Patient weight: obese Heart: regular rate and rhythm Lungs: clear to auscultation Airway: Mallampati scale class II Neurological: alert and oriented Last oral intake: >/= 8 hours ASA classification: III Emergent: no Anesthetic plan: proceed Anesthesia type and monitoring: general GIVS and standard monitoring Results Review: All pre-operative results and documents have been reviewed as part of the pre-operative evaluation. Informed Consent: The patient's anesthetic plan and its attendant risks and benefits were discussed with the patient/family/POA. Questions were solicited and answers provided to the satisfaction of the patient/family/POA.
--- NOTE | 2024-12-26 08:52 | WPDHPUPDATE1 ---
History and Physical Update Update Date/Time: 12/26/24 08:52 History and Physical has been reviewed, including an updated exam of the patient. There are NO changes in the patient's condition. Risks, benefits, and alternatives have been discussed and questions answered. Patient agrees to proceed with procedure.
[2024-12-26 09:22] VITALS: BP 133/79; PULSE 66; RESP 18; O2SAT 95
[2024-12-26 09:33] VITALS: BP 137/83; PULSE 62; RESP 20; O2SAT 96
[2024-12-26 09:44] VITALS: BP 146/83; PULSE 55; RESP 19; O2SAT 99
== END 2024-12-26 10:00 | disposition home or self-care (01) ==
PROVIDERS: PCP Family Medicine; Visit Provider Surgery
PROC: 0DJD8ZZ Inspection of Lower Intestinal Tract, Via Natural or Artificial Opening Endoscopic (ICD-10-PCS; CPT 45378; principal; 2024-12-26 09:00)
DX: K64.1 Second degree hemorrhoids (principal); D12.3 Benign neoplasm of transverse colon; K62.1 Rectal polyp; E78.5 Hyperlipidemia, unspecified; I10 Essential (primary) hypertension; F32.A Depression, unspecified; G25.81 Restless legs syndrome; R73.03 Prediabetes; E66.9 Obesity, unspecified; Z68.37 Body mass index [BMI] 37.0-37.9, adult; Z98.890 Other specified postprocedural states; Z80.42 Family history of malignant neoplasm of prostate; Z82.49 Family history of ischemic heart disease and other diseases of the circulatory system
CPT/HCPCS: 45380; 88305; J2003; J2704; J7120